=== PATIENT | female | born 1995 ===

== ENCOUNTER 2017-09-15 17:14 | Emergency (ER) | payer OTHER ==
[2017-09-15 17:30] VITALS: BP 124/79; PULSE 99; RESP 20; TEMP 98.9; O2SAT 98
--- NOTE | 2017-09-15 18:37 | C.PDOC ---
History Of Present Illness 21 y/o female presents to the ER complaining of rectal pain which has been present for the past 4 months. Patient states that she was een by a GI and she was diagnosed with hemorrhoids. Patient reports that she was given stool softener. She notes that she still has pruritus in the nal region and she has to scratch. It is painful for the patient to have a bm. Time Seen by Provider: 09/15/17 17:54 Chief Complaint (Nursing): GI Problem History Per: Patient History/Exam Limitations: no limitations Onset/Duration Of Symptoms: Days Current Symptoms Are (Timing): Still Present Severity: Moderate Past Medical History Reviewed: Historical Data, Nursing Documentation, Vital Signs Vital Signs: Last Vital Signs Temp 98.9 F 09/15/17 17:25 Pulse 99 H 09/15/17 17:25 Resp 20 09/15/17 17:25 BP 124/79 09/15/17 17:25 Pulse Ox 98 09/15/17 21:51 - Medical History PMH: No Chronic Diseases Surgical History: No Surg Hx Family History: States: No Known Family Hx - Social History Hx Alcohol Use: No Hx Substance Use: No - Immunization History Hx Tetanus Toxoid Vaccination: No Hx Influenza Vaccination: No Hx Pneumococcal Vaccination: No Review Of Systems Except As Marked, All Systems Reviewed And Found Negative. Gastrointestinal: Positive for: Rectal Pain Physical Exam - Physical Exam Appears: Non-toxic, No Acute Distress Skin: Normal Color, Warm, Dry Head: Atraumatic, Normacephalic Eye(s): bilateral: Normal Inspection Nose: Normal Oral Mucosa: Moist Neck: Supple Chest: Symmetrical Cardiovascular: Rhythm Regular Respiratory: Normal Breath Sounds, No Rales, No Rhonchi, No Wheezing Gastrointestinal/Abdominal: Normal Exam, Soft, No Tenderness Rectal: Other ((-) open sores, (-) fissures) Extremity: Normal ROM Neurological/Psych: Oriented x3, Normal Speech ED Course And Treatment O2 Sat by Pulse Oximetry: 98 (RA) Pulse Ox Interpretation: Normal Progress Note: Patient has been discharged with prescription for Protcofoam cream and instructed to follow up with GI in 1-2 days. Disposition - Disposition Disposition: HOME/ ROUTINE Disposition Time: 18:37 Condition: STABLE Additional Instructions: Follow up with your Gatroenterologist within 1-2 days. Return to ED if feels worse. Prescriptions: Hydrocortisone-Pramoxine 1%-1% [Proctofoam-Hc 1%-1%] 1 appl TP 5XD #1 aer Instructions: How to Use a Rectal Suppository or Ointment Forms: [employer] (Sami) - Clinical Impression Clinical Impression: Rectal pain - PA / [employer] / Resident Statement MD/DO has reviewed & agrees with the documentation as recorded. - Scribe Statement The provider has reviewed the documentation as recorded by the Raginiibe Gwyn Oleary Provider Attestation All medical record entries made by the Raginiibe were at my direction and personally dictated by me. I have reviewed the chart and agree that the record accurately reflects my personal performance of the history, physical exam, medical decision making, and the department course for this patient. I have also personally directed, reviewed, and agree with the discharge instructions and disposition.
== END 2017-09-15 19:12 | disposition home or self-care (01) ==
LOC: C.ER 17:14
DX: K62.89 Other specified diseases of anus and rectum (principal)